=== PATIENT | female | born 1975 | race Caucasian/White ===

== ENCOUNTER → 2017-04-30 | Day surgery (SDC) | payer BC, MEDICAID ==
[~2017-04-30] MED LIST: MULTI-DAY PLUS1 EAC1; PROBIOTIC-DIGE1 EACH; PROTONIX PO; SELENIUM200 MC1 PO; SM VITAMIN B; TOPIRAMATE100 MG; TRAMADOL HCL50 M2 PO; TRIPLE MAGNESI400 MG; VITAMIN C120 G1; VITAMIN D35000 UNIT PO; WELLBUTRIN SR150 M1; [UNRECOGNIZED DRUG - OTHER]
--- NOTE | ~2017-04-30 | OR ---
Unit #: [id number] #: [id number] Patient: CECILLE MAYS [id number] [address] [place], [place] [address] [id number] MR#: [id number] NAME: CECILLE MAYS ROOM: Date of Procedure: 04/30/2017 Admission Date: 04/30/2017 Surgeon: Juan Yadav III, M.D. : 1975 Attending Physician: Juan Yadav III, M.D. Primary Care Physician: Steffanie García M.D. OPERATIVE REPORT PREOPERATIVE DIAGNOSES Symptomatic cholelithiasis with chronic cholecystitis. POSTOPERATIVE DIAGNOSES Symptomatic cholelithiasis with chronic cholecystitis. PROCEDURE PERFORMED Laparoscopic cholecystectomy. ANESTHESIA General. SPECIMENS Gallbladder to pathology. COMPLICATIONS None apparent. INDICATIONS FOR PROCEDURE This is a 42-year-old lady, who has gallstones and typical biliary colic. She is here today for laparoscopic cholecystectomy. DESCRIPTION OF PROCEDURE After consent was obtained, the patient was brought to the operating room and placed in the supine position. General anesthetic was administered. Her abdomen was prepped and draped in standard surgical fashion. I made a 5-mm incision in the right upper quadrant and using Optiview to enter into the peritoneal cavity without any difficulty. CO2 pneumoperitoneum was established. Next, a second 5-mm port was placed in the supraumbilical region and an 11-mm port was placed in the midepigastric region and a third 5-mm port was placed in the right lateral subcostal region. She had a difficulty gallbladder to grasp because of the large stones that basically replaced the inside of the gallbladder. I was able to get a purchase of the dome of the gallbladder and the neck and retracted this superiorly and laterally. I then dissected out the cystic duct and cystic artery. After these areas were carefully identified, they were then clipped twice proximally, once distally, and then divided. The gallbladder was then taken off the liver bed using the hook cautery. The gallbladder was placed in an EndoCatch bag and extracted through the epigastric port site. I did have to dilate the fascia and incised the skin incision further to deliver the gallbladder. I then had excellent hemostasis. All needle, sponge, and instrument counts were correct x2. I Unit #: [id number] #: [id number] Patient: CECILLE MAYS reapproximated the fascia at the epigastric port site with an interrupted 0 Vicryl suture and the skin edges were injected with 0.25% plain Marcaine. I then reapproximated the skin edges with interrupted 4-0 Vicryl subcuticular suture. Steri-Strips were then applied. The patient tolerated the procedure without any problems and returned to the recovery room in stable condition. Dictated by... Juan Yadav III, M.D. VCL/angel TD: 05/03/2017 07:03 JOB #: [id number] OPERATIVE REPORT Page 1 of 1 X Juan Yadav III, MD X PROCEDURE OPERATIVE NOTE
[2017-04-30 11:10] LABS: HEMATOCRIT 40.4 % (35.0-45.0); HEMOGLOBIN 13.1 gm/dL (12.0-16.0); MEAN CELL VOLUME 88.4 FL (83-96); MEAN CORPUSCULAR HEMOGLOBIN 28.8 PG (28-34); MEAN CORPUSCULAR HGB CONC 32.5 g/dL (30-36); MEAN PLATELET VOLUME 9.2 FL (6.5-11.5); RED BLOOD COUNT 4.57 X10e (3.90-5.30); RED CELL DISTRIBUTION WIDTH 15.7 % (11.0-15.5); WHITE BLOOD COUNT 5.3 X10e3 (4.0-10.5)
[2017-04-30 11:55] LABS: ALBUMIN SERUM 4.2 g/dL (3.5-5.0); BILIRUBIN,TOTAL 0.7 mg/dL (0.2-2.0); CALCIUM SERUM 8.8 mg/dL (8.4-10.2); CREATININE SERUM 0.8 mg/dL (0.6-1.4); GLOM FILT RATE Estimated 89.7 mL/min (>60); POTASSIUM 3.3 mmol/L (3.5-5.1); PROTEIN TOTAL SERUM 6.8 g/dL (6.0-8.3)
== END | disposition home or self-care (01) ==
LOC: CSUR 10:02
PROVIDERS: Surgery
DX: K80.10 Calculus of gallbladder with chronic cholecystitis without obstruction (principal); G43.909 Migraine, unspecified, not intractable, without status migrainosus; F43.21 Adjustment disorder with depressed mood; Z79.899 Other long term (current) drug therapy
CPT/HCPCS: 80053; 84703; 85027; 88304; C2617; J2250; J2270; J2405; J3010

== ENCOUNTER 2017-05-17 15:45 | Observation (INO) | payer BC, MEDICAID ==
--- NOTE | ~2017-05-17 | CO ---
Unit #: [id number] #: [id number] Patient: CECILLE MAYS [id number] [address] [place], [place] [address] [id number] I MR#: [id number] NAME: CECILLE MAYS ROOM: 215 Age: 42 Sex: F Admission Date: 05/17/2017 : 1975 Attending Physician: Manish Beverly M.D. Primary Care Physician: Steffanie García M.D. Consultation Date: 05/18/2017 CONSULTATION REPORT BRIEF HISTORY The patient is a 42-year-old lady, who is status post lap hafsa approximately 2 weeks ago with increasing abdominal pain. She presented to her primary care doctor and was found to have elevated liver function studies. She had originally had elevated studies, which then progressed to normal prior to her lap hafsa. PAST MEDICAL HISTORY None. PAST SURGICAL HISTORY She had a section. HOME MEDICATIONS Wellbutrin, multiple vitamins. SOCIAL HISTORY Does drink routinely. No smoking. FAMILY HISTORY Negative for GI malignancy. REVIEW OF SYSTEMS No cardiopulmonary complaints at this time. Else, 10 systems reviewed and negative. PHYSICAL EXAMINATION GENERAL: She is awake, alert, in no distress. VITAL SIGNS: Currently, afebrile. HEENT: Unremarkable. NECK: Supple. No JVD. Trachea midline. LUNGS: Clear to auscultation. Bilateral breath sounds symmetric. CARDIOVASCULAR: Regular rate and rhythm. ABDOMEN: Mildly distended. Diffusely tender. No rebound. No point tenderness. No masses. No hernias. Wounds are healing nicely. EXTREMITIES: No clubbing, cyanosis, or edema. DIAGNOSTIC STUDIES LABORATORY RESULTS: Show a white count of 5, hemoglobin is 12.6. Alkaline phosphatase was elevated at 900, is pending for this morning. IMAGING STUDIES: Ultrasound shows a dilated common bile duct. ASSESSMENT Unit #: [id number] #: [id number] Patient: CECILLE MAYS Likely common bile duct stones. PLAN We will hydrate and have Dr. Reese evaluate for possible ERCP. Dictated by... Manish Beverly M.D. MOYO/angel TD: 05/20/2017 05:34 JOB #: [id number] CONSULTATION REPORT Page 1 of 1 X Manish Beverly MD CONSULTATION REPORT
--- NOTE | ~2017-05-17 | DS ---
Unit #: [id number] #: [id number] Patient: CECILLE MAYS [id number] [address] [place], [place] [address] [id number] I MR#: [id number] NAME: CECILLE MAYS ROOM: 215 Age: 42 Sex: F Admission Date: 05/17/2017 : 1975 Discharge Date: 05/19/2017 Attending Physician: Manish Beverly M.D. Primary Care Physician: Steffanie García M.D. DISCHARGE SUMMARY DISCHARGE DIAGNOSES 1. Retained common bile duct stone, status post laparoscopic cholecystectomy. 2. Ulcerative esophagitis with gastroesophageal reflux disease. OPERATIVE PROCEDURE Esophagogastroduodenoscopy with ERCP and stone extraction. DISCHARGE MEDICATIONS Home medications plus Protonix 40 mg, one p.o. b.i.d. HISTORY OF PRESENT ILLNESS/HOSPITAL COURSE 42-year-old white female who two weeks ago had laparoscopic cholecystectomy, presented with mid epigastric pain, elevated liver function tests consistent with possible common duct stone. She was scoped and found to have common duct stone which was extracted per ERCP. The patient was also noted incidentally to have ulcerative esophagitis. The patient presently, at this time, is asymptomatic. She looks good, she feels better. Her abdomen is soft, benign, nontender. She is ready to be discharged to come back to see us in the office for followup evaluation in two weeks. Dictated by... Carlee Talavera/fred TD: 05/20/2017 08:31 JOB #: [id number] DISCHARGE SUMMARY Page 1 of 1 X Demar Velasco MD X DISCHARGE SUMMARY
--- NOTE | ~2017-05-17 | OR ---
Unit #: [id number] #: [id number] Patient: CECILLE MAYS [id number] [address] [place], [place] [address] [id number] I MR#: [id number] NAME: CECILLE MAYS ROOM: [facility] Date of Procedure: 05/18/2017 Admission Date: 05/17/2017 Surgeon: Adrian Reese M.D. : 1975 Attending Physician: Manish Beverly M.D. Primary Care Physician: Steffanie García M.D. OPERATIVE REPORT PRIMARY CARE PHYSICIAN Steffanie García M.D. PREOPERATIVE DIAGNOSES The patient has presented with history of epigastric and retrosternal pain radiating to the back. She is status post laparoscopic cholecystectomy. She also mentions history of dyspeptic symptoms and dysphagia. A preliminary upper GI endoscopy was therefore done before endoscopic retrograde cholangiopancreatography was performed. PROCEDURES PERFORMED 1. Endoscopic retrograde cholangiopancreatography and biopsy. 2. Endoscopic retrograde cholangiopancreatography and balloon dilation of the distal esophagus. POSTOPERATIVE DIAGNOSES 1. 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 This had a classic benign appearance. It was dilated using a 15 to 18 mm TTS balloon. 2. A small hiatus hernia. 3. The patient had prepyloric antral erosive gastritis. A biopsy was obtained from the antrum for CLOtest. 4. Rest of the examination up to third part of the duodenum was normal. RECOMMENDATIONS The patient is due to undergo an ERCP shortly. She should stay on a long-term once a day PPI therapy in the form of Protonix 40 mg p.o. daily. SEDATION USED MAC. DESCRIPTION OF PROCEDURE Following detailed explanation of potential risks and complications of an upper endoscopy, namely perforation, bleeding, and complication related to sedation, the patient was brought to GI lab and laid in the left lateral decubitus position. Lubricated tip of the Olympus video upper endoscope was passed through the bite block into the proximal esophagus under direct vision. The entire esophageal mucosa was examined. The patient was noted to have significant esophagitis with erosions in the mid and distal esophagus along with a distal esophageal benign stricture with a classic appearance. The stricture was tight enough not to allow the shaft of the scope to pass through. It was therefore dilated using a 15 to 18 mm TTS balloon. The scope was then advanced into the gastric cavity and the Unit #: [id number] #: [id number] Patient: CECILLE MAYS latter was insufflated. A small hiatus hernia was noted. Mucosa of the fundus, body, and antrum was examined and mild diffuse prepyloric antral gastritis was noted in the form of erosions and erythema in the antral area. Pylorus was intubated with visualization of the normal duodenal bulb and second and third part of the duodenum. Upon withdrawal and retroflexion; incisura, cardia, and greater curve was examined and a biopsy was obtained from the antrum for CLOtest. The scope was then withdrawn in the distal esophagus. Entire esophageal mucosa was examined all the way up to pharynx. No additional findings were noted. The patient tolerated the procedure without any postprocedure complications. Dictated by... Carlee Peterson TD: 05/25/2017 19:00 JOB #: [id number] OPERATIVE REPORT Page 1 of 1 X Adrian Reese MD X PROCEDURE OPERATIVE NOTE
--- NOTE | ~2017-05-17 | CR84 ---
[facility] RADIOLOGY TEXT RESULTS PATIENT: CECILLE MAYS LOCATION: [facility] : [birth year] UNIT #: [id number] AGE: [address]: Manish Beverly MD SEX: F ORDER DR: [id number] [facility] [address] [facility]. [place], [place] [address] [id number] I MR#: [id number] Acc #: [id number] NAME: CECILLE MAYS : 1975 SEX: F STUDY DATE/TIME: 05/18/2017 17:17 UNIT: [facility] ROOM: [facility] STUDY DESCRIPTION: CR ERCP Biliary and Pancr SI Attending Physician: Manish Beverly M.D. Ordering Physician: Adrian Reese M.D. Primary Care Physician: Steffanie García M.D. MEDICAL IMAGING REPORT This report is preliminary unless electronic signature is present EXAM ERCP INDICATION Common bile duct stone. Choledocholithiasis. PROCEDURE Endoscopy performed by Dr. Reese. Total of 5 images are submitted. Fluoro time was 1 minute 19 seconds. COMPARISON 05/17/2017 ultrasound. FINDINGS The common duct is injected and is moderately prominent. There are a few filling defects in the common duct. Endoscopist reports that a sphincterotomy was performed and a balloon sweep was performed removing stones. IMPRESSION Moderate prominence of the common duct with reported sphincterotomy and removal of stones. Refer to endoscopist note for complete details. Dictated by... Atif Man M.D. THIS IS AN ELECTRONICALLY VERIFIED REPORT Atif Man M.D. at 05/19/2017 10:28 PM KARLA/moreno TD: 05/19/2017 07:24 JOB #: [id number] [facility] RADIOLOGY TEXT RESULTS PATIENT: CECILLE MAYS LOCATION: [facility] : [birth year] UNIT #: [id number] AGE: [address]: Manish Beverly MD SEX: F ORDER DR: MEDICAL IMAGING REPORT Page 1 of 1 COPY
--- NOTE | ~2017-05-17 | OR ---
Unit #: [id number] #: [id number] Patient: CECILLE MAYS [id number] [address] [place], [place] [address] [id number] I MR#: [id number] NAME: CECILLE MAYS ROOM: [facility] Date of Procedure: 05/18/2017 Admission Date: 05/17/2017 Surgeon: Adrian Reese M.D. : 1975 Attending Physician: Manish Beverly M.D. Primary Care Physician: Steffanie García M.D. OPERATIVE REPORT PRIMARY CARE PHYSICIAN Steffanie García M.D. PREOPERATIVE DIAGNOSES The patient has presented with intense epigastric retrosternal pain radiating to the back. She is status post laparoscopic cholecystectomy. An ultrasound suggests possibility of distal common bile duct stone. PROCEDURES PERFORMED Endoscopic retrograde cholangiopancreatography and stone extraction. POSTOPERATIVE DIAGNOSES A single 1 cm stone was seen, was present in the distal common bile duct. This was removed after sphincterotomy and balloon extraction. A normal occlusion cholangiogram was demonstrated at the end of procedure. The patient had excellent biliary drainage. RECOMMENDATIONS The patient will be followed up in the office in 6 to 8 weeks' time. She can be started on regular diet, and can be discharged home from gastrointestinal standpoint. SEDATION USED MAC. DESCRIPTION OF PROCEDURE Following detailed explanation of the potential risks and complications of an ERCP, namely perforation, bleeding, complication related to sedation, and pancreatitis, the patient was brought to GI lab and laid in the left semiprone position. Sedation using MAC was given. A lateral-viewing duodenoscope was advanced through the oral cavity into the esophagus and advanced into the stomach. Pylorus was intubated in usual fashion. The scope was advanced in deep descending duodenum. Upon shortening the scope, major papilla and ampulla area was visualized en face. Selective cannulation of the common bile duct was done using guidewire based technique. Contrast was injected and a single stone was seen in the distal common bile duct. The CBD was about 9 mm. We then proceeded with a sphincterotomy. A 1 cm sphincterotomy was performed. A 9 to 12 mm retrieval balloon was used and duct was freed 2 to 3 times. A single cholesterol stone was delivered in the duodenum. Excellent biliary drainage was established and normal occlusion cholangiogram was demonstrated at the end of procedure with rapid contrast delivery to the Unit #: [id number] #: [id number] Patient: CECILLE MAYS duodenum. The scope and the accessories were then withdrawn. The patient returned to the recovery area. She tolerated the procedure without any postprocedure complications. No attempt was made to cannulate the pancreas. Dictated by... Carlee Peterson/angel TD: 05/25/2017 19:08 JOB #: [id number] OPERATIVE REPORT Page 1 of 1 X Adrian Reese MD X PROCEDURE OPERATIVE NOTE
--- NOTE | ~2017-05-17 | CO ---
Unit #: [id number] #: [id number] Patient: CECILLE MAYS [id number] [address] [place], [place] [address] [id number] I MR#: [id number] NAME: CECILLE MAYS ROOM: 215 Age: 42 Sex: F Admission Date: 05/17/2017 : 1975 Attending Physician: Manish Beverly M.D. Primary Care Physician: Steffanie García M.D. Consultation Date: 05/18/2017 CONSULTATION REPORT PRIMARY CARE PHYSICIAN Steffanie García M.D. REASON FOR CONSULTATION Possible common bile duct stone. The patient is status post laparoscopic cholecystectomy. HISTORY OF PRESENT ILLNESS Ms. Mays is a 42-year-old white female, who underwent laparoscopic cholecystectomy on 04/30/2017. Since then, the patient had 2 or 3 episodes of severe and intense pain felt in the lower sternal area radiating to the back as well as in the upper epigastric area. The patient has nausea, but no vomiting. The pain has been quite intense that lasting for several hours. When she came in yesterday, she had pain that had been lasted for 3 to 4 hours and it to resolve after the patient being IV analgesia. PAST MEDICAL HISTORY Significant for history of anxiety. She has had the only previous abdominal surgery is section and laparoscopic cholecystectomy. MEDICATIONS Include topiramate, Wellbutrin, probiotic, multivitamins, tramadol, magnesium, psyllium, riboflavin, vitamin B, and cholecalciferol. ALLERGIES She is allergic to adhesive tape. SOCIAL HISTORY The patient works as a high school assistant football coach. Does not smoke and drinks socially. FAMILY HISTORY None of colon, pancreatic cancer, or liver disease. REVIEW OF SYSTEMS Detailed review of organ systems does not reveal any recent weight loss. No history of fever, chills, or rigors. No history of headache, seizures, or syncope. No history of cough, expectoration, or hemoptysis. No history of dysuria, hematuria, or pyuria. No history of focal seizures or extremity weakness. Rest of the review of organ systems are unremarkable. PHYSICAL EXAMINATION GENERAL: She is alert and oriented, appears comfortable. VITAL SIGNS: Stable with a temperature of 98.3, pulse 87 per minute and Unit #: [id number] #: [id number] Patient: CECILLE MAYS regular, respirations 16, blood pressure 149/96, oxygen saturation 100% on room air. HEENT: She has no pallor, icterus, lymphadenopathy, or peripheral edema. CARDIOVASCULAR: Normal heart sounds. No murmurs. LUNGS: Auscultation over the lungs reveals normal breath sounds. Good air entry. ABDOMEN: Soft. The patient has minimally tender over the site of the recent laparoscopic cholecystectomy. The pain is probably mostly in . There is also minimal epigastric tenderness. Hernia sites are normal and bowel sounds normal. DIAGNOSTIC STUDIES LABORATORY RESULTS: Lab evaluation shows a normal CBC and serum chemistry that shows elevated AST, ALT, and alkaline phosphatase with a normal bilirubin. IMAGING STUDIES: The patient had an ultrasound earlier that shows possible distal common bile duct stone with the borderline dilation of the common bile duct. CLINICAL IMPRESSION The patient most likely has common bile duct stone. She is status post laparoscopic cholecystectomy. An endoscopic retrograde cholangiopancreatography is indicated and will be scheduled shortly. The pros and cons of procedure, potential risks, complications discussed with the patient. She was reassured. Thank you for asking me to see this pleasant woman. I appreciate the consult. Dictated by... Carlee Peterson/angel TD: 05/19/2017 20:17 JOB #: [id number] CC: . CONSULTATION REPORT Page 1 of 1 X Adrian Reese MD CONSULTATION REPORT
--- NOTE | ~2017-05-17 | US67 ---
[facility] A Service of [facility] RADIOLOGY TEXT RESULTS PATIENT: CECILLE MAYS LOCATION: A : 71 UNIT #: [id number] AGE: [address]: Manish Beverly MD SEX: F ORDER DR: [id number] [place] [address] [place], [place] [address] [id number] MR#: [id number] Acc #: [id number] NAME: CECILLE MAYS. : 1975 SEX: F STUDY DATE/TIME: 05/17/2017 16:21 UNIT: [facility] ROOM: [facility] STUDY DESCRIPTION: US Gallbladder Attending Physician: Manish Beverly M.D. Ordering Physician: Nick Esteves M.D. Primary Care Physician: Steffanie García M.D. MEDICAL IMAGING REPORT This report is preliminary unless electronic signature is present EXAM Right upper quadrant ultrasound INDICATION Right upper quadrant abdominal pain for 2 weeks. Prior cholecystectomy. Hepatic steatosis. COMPARISON Right upper quadrant ultrasound 04/28/[address] abdomen dated 05/18/2013. FINDINGS Visualized portions of the pancreas are within normal limits. The pancreatic tail is obscured due to overlying bowel gas. Echogenicity and echotexture of the hepatic parenchyma is within normal limits. No hepatic mass. The intrahepatic bile ducts are normal in caliber. The common duct is borderline dilated at 0.7 cm. Patient does have prior cholecystectomy. Please note the gallbladder was normal in size measuring 4 mm on 04/28/2017. The right kidney measures 9.5 cm. Renal cortical thickness and echogenicity is normal. No hydronephrosis. IMPRESSION Development of borderline dilation of the common bile duct in a patient status post recent cholecystectomy. This is an acute change from the recent ultrasound of 04/28/2017. Distal common bile duct stone should be considered. Unfortunately the distal common bile duct could not be visualized on this sonogram due to the overlying bowel gas. Consider further evaluation with either an ERCP or MRCP, particularly if the patient's liver function tests or bilirubin are elevated. [facility] A Service of [facility] RADIOLOGY TEXT RESULTS PATIENT: CECILLE MAYS LOCATION: [place] [address] : [birth year] UNIT #: [id number] AGE: [address]: Manish Beverly MD SEX: F ORDER DR: Dictated by... Kory Vides M.D. THIS IS AN ELECTRONICALLY VERIFIED REPORT Kory Vides M.D. at 05/18/2017 10:48 AM MATTHEW/moreno TD: 05/18/2017 07:21 JOB #: [id number] MEDICAL IMAGING REPORT Page 1 of 1 COPY
[~2017-05-17 15:45] MED LIST changes: -PROTONIX PO
[2017-05-18 05:44] LABS: HEMATOCRIT 38.6 % (35.0-45.0); HEMOGLOBIN 12.6 gm/dL (12.0-16.0); MEAN CELL VOLUME 89.6 FL (83-96); MEAN CORPUSCULAR HEMOGLOBIN 29.2 PG (28-34); MEAN CORPUSCULAR HGB CONC 32.6 g/dL (30-36); MEAN PLATELET VOLUME 9.6 FL (6.5-11.5); RED BLOOD COUNT 4.31 X10e (3.90-5.30); WHITE BLOOD COUNT 5.5 X10e3 (4.0-10.5)
[2017-05-18 07:05] LABS: ALBUMIN SERUM 3.6 g/dL (3.5-5.0); BILIRUBIN,TOTAL 0.4 mg/dL (0.2-2.0); BUN/CREATININE RATIO 7.14; CALCIUM SERUM 8.9 mg/dL (8.4-10.2); CREATININE SERUM 0.7 mg/dL (0.6-1.4); GLOM FILT RATE Estimated 105.4 mL/min (>60); POTASSIUM 3.5 mmol/L (3.5-5.1); PROTEIN TOTAL SERUM 6.6 g/dL (6.0-8.3)
[2017-05-19 05:57] LABS: HEMATOCRIT 39.2 % (35.0-45.0); HEMOGLOBIN 12.5 gm/dL (12.0-16.0); MEAN CELL VOLUME 90.4 FL (83-96); MEAN CORPUSCULAR HEMOGLOBIN 28.8 PG (28-34); MEAN CORPUSCULAR HGB CONC 31.9 g/dL (30-36); MEAN PLATELET VOLUME 9.9 FL (6.5-11.5); RED BLOOD COUNT 4.34 X10e (3.90-5.30); RED CELL DISTRIBUTION WIDTH 14.7 % (11.0-15.5); WHITE BLOOD COUNT 7.6 X10e3 (4.0-10.5)
[2017-05-19 06:54] LABS: ALBUMIN SERUM 3.7 g/dL (3.5-5.0); BILIRUBIN,TOTAL 0.5 mg/dL (0.2-2.0); BUN/CREATININE RATIO 8.33; CALCIUM SERUM 8.8 mg/dL (8.4-10.2); CREATININE SERUM 0.6 mg/dL (0.6-1.4); GLOM FILT RATE Estimated 110.9 mL/min (>60); POTASSIUM 3.4 mmol/L (3.5-5.1); PROTEIN TOTAL SERUM 6.5 g/dL (6.0-8.3)
[2017-05-19] MEDS ORDERED: PROTONIX PO (08:38)
== END 2017-05-19 09:14 | disposition home or self-care (01) | DRG 445 ==
LOC: CED 15:45 → C2A 17:37 → CEDOF 17:37 → CED 17:51 → CEDOF 20:05 → C2A 20:05
PROVIDERS: Internal Medicine Gastroenterology; Surgery
DX: K80.50 Calculus of bile duct without cholangitis or cholecystitis without obstruction (principal); K22.10 Ulcer of esophagus without bleeding; K21.0 Gastro-esophageal reflux disease with esophagitis; K22.2 Esophageal obstruction; K44.9 Diaphragmatic hernia without obstruction or gangrene; K29.60 Other gastritis without bleeding; Z79.899 Other long term (current) drug therapy; Z91.09 Other allergy status, other than to drugs and biological substances; Z90.49 Acquired absence of other specified parts of digestive tract
CPT/HCPCS: 74330; 76705; 80053; 84703; 85027; 87077; 96361; 96374; 96376; 99285; G0378; J2250; J2270